=== PATIENT | male | born 1945 | race African-American/Black ===

== ENCOUNTER 2021-04-22 18:45 | Inpatient (IN) | payer MEDICARE, BC ==
[~2021-04-22] VITALS: Ht 170.2 cm; Wt 99.8 kg
[~2021-04-22 18:45] MED LIST: ALLO300T2 MT; AMLO5TAB88 PO; ATEN-42 PO; ENAL20TA18 MT; GABA-532 PO; LIRA0.6P SQ; METF-416 PO
[2021-04-22] MEDS ORDERED: CALCIUM GLUCONATE 1GM PREMIX 50 ML IV ONE (20:15)
[2021-04-22 20:53] LABS: CHLORIDE 108 mEq/L (98-107)
[2021-04-22 21:00] LABS: HEMATOCRIT. 43.8 % (42.0-52.0); HEMOGLOBIN. 14.7 g/dL (14.0-18.0); MEAN CORPUSCULAR HEMOGLOBIN 31.8 pg (28.0-32.0); MEAN CORPUSCULAR VOLUME 94.6 fL (80.0-94.0); MEAN PLATELET VOLUME 7.6 fl (7.4-10.4); PLATELET 211 x1000/uL (130-400); RED BLOOD CELL COUNT 4.63 mill/uL (4.7-6.1); RED CELL DISTRIBUTION WIDTH 15.8 % (11.6-14.6)
[2021-04-22 21:53] LABS: PLATELET ESTIMATE NORMAL
[2021-04-23] MEDS ORDERED: ASPIRIN 325MG EC TABLET PO ONE (00:30)
[2021-04-23 08:30] VITALS: BP 131/84
[2021-04-23] MEDS ORDERED: ACETAMINOPHEN 325MG TABLET PO PRN ×2 (09:15)
[2021-04-23] MEDS ORDERED: CLONIDINE 0.1MG TABLET PO PRN (09:15)
[2021-04-23] MEDS ORDERED: HYDROCODONE/ACETAMINOPHEN 5/325MG TABLET PO PRN (09:15)
[2021-04-23] MEDS ORDERED: DOCUSATE SODIUM 100MG CAPSULE PO PRN (09:15)
[2021-04-23] MEDS ORDERED: IPRATROPIUM/ALBUTEROL 0.5-3(2.5)MG/3ML NEB HHN PRN (09:15)
[2021-04-23] MEDS ORDERED: ONDANSETRON HCL 4MG/2ML INJ IV PRN (09:15)
[2021-04-23] MEDS ORDERED: LORAZEPAM 0.5MG TABLET PO PRN (09:15)
[2021-04-23 09:30] VITALS: BP 131/84
[2021-04-23] MEDS ORDERED: DEXTROSE 50% WATER 50ML SYRINGE IV PRN (10:00)
[2021-04-23] MEDS: FUROSEMIDE 40MG/4ML VIAL IVP SCH (10:01)
[2021-04-23] MEDS: BLOOD SUGAR DIAGNOSTIC STRIP TEST SCH ×3 (10:52→21:00)
[2021-04-23 12:00] VITALS: BP 128/74
[2021-04-23 12:32] LABS: CREATINE KINASE MB FRACTION 5.4 ng/mL (0.5-3.6)
[2021-04-23] MEDS: INSULIN LISPRO 100 UNITS/ML SUBCUT SCH ×3 (12:40→22:00)
[2021-04-23 16:00] VITALS: BP 103/69
[2021-04-23 20:00] VITALS: BP 110/74
[2021-04-24] VITALS: BP 112/79
[2021-04-24 04:00] VITALS: BP 115/85
[2021-04-24 06:43] LABS: BASOPHILS % 0.2 % (0.0-2.0); EOSINOPHILS % 3.5 % (0.0-5.0); MEAN CORPUSCULAR HEMOGLOBIN 31.3 pg (28.0-32.0); MEAN CORPUSCULAR VOLUME 93.5 fL (80.0-94.0); MEAN PLATELET VOLUME 7.5 fl (7.4-10.4); MONOCYTES % 13.5 % (2.0-8.0); NEUTROPHILS % 39.8 % (40.0-76.0); PLATELET 200 x1000/uL (130-400); RED BLOOD CELL COUNT 4.49 mill/uL (4.7-6.1); RED CELL DISTRIBUTION WIDTH 15.4 % (11.6-14.6)
[2021-04-24 06:59] LABS: CHLORIDE 107 mEq/L (98-107)
[2021-04-24] MEDS: INSULIN LISPRO 100 UNITS/ML SUBCUT SCH ×3 (07:40→16:54)
[2021-04-24] MEDS: BLOOD SUGAR DIAGNOSTIC STRIP TEST SCH ×3 (07:46→16:54)
[2021-04-24 08:00] VITALS: BP 108/74
[2021-04-24] MEDS: FUROSEMIDE 40MG/4ML VIAL IVP SCH (10:33)
[2021-04-24 12:00] VITALS: BP 105/69
[2021-04-24] MEDS ORDERED: FURO40TA5 MT (14:35)
[2021-04-24 16:00] VITALS: BP 103/65
[2021-04-24] MEDS ORDERED: FUROSEMIDE 40MG/4ML VIAL IVP SCH (17:00)
[2021-04-24 17:33] VITALS: BP 106/62
== END 2021-04-24 18:00 | disposition home health service (06) | DRG 291 ==
LOC: ER 18:45 → MICUSO 04-23 00:19 → 8WST 04-23 09:22
PROVIDERS: ADMIT Internal Medicine; ATTEND Internal Medicine
DX: I11.0 Hypertensive heart disease with heart failure (principal); J96.90 Respiratory failure, unspecified, unspecified whether with hypoxia or hypercapnia; I50.23 Acute on chronic systolic (congestive) heart failure; R18.8 Other ascites; E78.5 Hyperlipidemia, unspecified; K74.60 Unspecified cirrhosis of liver; E87.5 Hyperkalemia; Z20.822 Contact with and (suspected) exposure to COVID-19; R94.31 Abnormal electrocardiogram [ECG] [EKG]; E11.9 Type 2 diabetes mellitus without complications; M19.90 Unspecified osteoarthritis, unspecified site; I08.1 Rheumatic disorders of both mitral and tricuspid valves; Z79.899 Other long term (current) drug therapy
CPT/HCPCS: 36415; 71045; 71250; 80048; 80053; 82550; 82553; 82962; 83036; 83735; 83880; 84484; 85025; 87426; 93005; 93306; 99285; J0610; J1815; J1940